=== PATIENT | male | born 1990 | race African-American/Black ===

== ENCOUNTER 2018-07-10 20:26 | Emergency (ER) | payer SELFPAY ==
[~2018-07-10] VITALS: Ht 180.3 cm; Wt 79.4 kg
[2018-07-10 20:38] VITALS: BP 122/85
[2018-07-10] MEDS ORDERED: HydrOXYzine 50mg tab ORAL ONE (20:45)
--- NOTE | 2018-07-10 20:45 | Emergency Room Report ---
History of Present Illness General Chief Complaint: Medical Clearance Source: Patient, EMS, Law Enforcement Present Illness HPI Patient presents after being arrested for trying to steal a car allegedly. As he was being arrested he had a anxiety attack and started having right-sided chest pain. He feels pressure. He also has a headache. The pain is rated 8/ 10. EMS performed an EKG which reveals sinus tachycardia and no other changes. Pain rated 5/10, aching pressure, R sided, not radiating. The patient denies other drugs. Denies fevers or cough. History of asthma but denies wheezing. The patient's taking Prozac. He states he is compliant with this. He denies suicidal or homicidal ideation right now. No nausea, vomiting, diarrhea, dysuria, skin rashes, weakness. Allergies: Coded Allergies: No Known Allergies (Unverified , 07/10/18) Patient History Past Medical History: see triage record Social History: Reports: alcohol use; Denies: smoking, drug use Social History Narrative in custody Reviewed Nursing Documentation: PMH: Agreed; PSxH: Agreed Nursing Documentation-PMH Hx Asthma: Yes History Of Psychiatric Problem: Yes - ptsd, anxiety, depression Review of Systems All Other Systems: negative except mentioned in HPI Physical Exam Vital Signs Date Time Temp Pulse Resp B/P (MAP) Pulse Ox O2 Delivery O2 Flow Rate FiO2 07/10/18 20:27 98.2 108 24 122/85 100 Room Air Sp02 EP Interpretation: reviewed, normal General Appearance: well appearing, GCS 15, mild distress - Anxious Head: normocephalic Eyes: bilateral eye normal inspection, bilateral eye PERRL ENT: moist mucus membranes Neck: supple Respiratory: chest non-tender, lungs clear, normal breath sounds Cardiovascular #1: tachycardia Cardiovascular #2: 2+ radial (R) Gastrointestinal: normal inspection, normal bowel sounds, non tender, no mass, non-distended Musculoskeletal: back normal, gait/station normal, normal range of motion Neurologic: alert, oriented x3, grossly normal Psychiatric: anxious Skin: normal inspection, warm/dry Medical Decision Making Diagnostic Impression: Primary Impression: Chest pain Qualified Codes: R07.9 - Chest pain, unspecified Additional Impression: Anxiety ER Course Patient presents with right-sided chest pain and anxiety. Differential includes anxiety, also chondritis, chest wall strain amongst others. Prehospital EKG is reviewed which revealed sinus tachycardia without any acute changes. The patient's requesting medication for anxiety and for pain. The patient will be treated with Vistaril and Tylenol. No further studies indicated. Patient improved with treatment. He states pain and anxiety much improved. Patient stable for booking and outpatient treatment. EKG Diagnostic Results Rate: tachycardiac ST Segments: no acute changes Rhythm Strip Diag. Results EP Interpretation: yes Rhythm: no PVC's, no ectopy, other - Sinus tachy Last Vital Signs Date Time Temp Pulse Resp B/P (MAP) Pulse Ox O2 Delivery O2 Flow Rate FiO2 07/10/18 21:44 98.2 86 24 122/85 100 Room Air Status: improved Disposition: D/C TO LAW ENFORCEMENT IN CUST Condition: Improved Jesus Raman MD Jul 10, 2018 20:45
[2018-07-10 21:44] VITALS: BP 122/85
== END 2018-07-10 23:00 ==
LOC: EDBD 20:26 → EMR 22:46
DX: R07.9 Chest pain, unspecified (principal); F41.9 Anxiety disorder, unspecified; R00.0 Tachycardia, unspecified; F43.10 Post-traumatic stress disorder, unspecified; J45.909 Unspecified asthma, uncomplicated; R51 Headache
CPT/HCPCS: 99283